=== PATIENT | male | born 1995 | race Caucasian/White ===

== ENCOUNTER 2021-09-21 07:02 | Emergency (ER) | payer MEDICAID, SELFPAY ==
--- NOTE | ~2021-09-21 | XR_ITS ---
EXAMINATION: XR chest 1V portable DATE: 09/21/2021 08:30 INDICATION: Mid chest pain TECHNIQUE: frontal view of the chest was obtained. COMPARISON: Chest CT dated 09/21/2021 FINDINGS: The lungs are clear with no focal airspace opacities, pulmonary edema, pleural effusion or pneumothor ax. The cardiomediastinal silhouette is normal. Visualized bones and soft tissues are unremarkable. IMPRESSION: 1. Normal chest radiograph. Reviewed, dictated and finalized at location B. IMPRESSION: 1. Normal chest radiograph.
--- NOTE | ~2021-09-21 | CT_ITS ---
EXAMINATION: CTA chest PE protocol DATE: 09/21/2021 08:18 INDICATION: Chest pain. TECHNIQUE: Computed tomography angiography (CTA) of the chest was performed with 100 mL Omnipaque-350 intravenous contrast timed to evaluate the pulmonary arteries. Coronal maximum intensity projection 3D-reconstructions were created by the technologist. Automated exposure control and iterative reconst ruction technique were employed. The dose-length product was 310.04 mGy-cm. COMPARISON: None. FINDINGS: There is no pneumonia or pleural effusion. The heart size is normal. No pericardial effusio n. There is no pulmonary embolus. There is an 8 mm hyperdense mass in the esophageal lumen, likely in gested material. The bones are unremarkable. IMPRESSION: 1. No pulmonary embolus. Reviewed, dictated and finalized at location A. IMPRESSION: 1. No pulmonary embolus.
--- NOTE | 2021-09-21 07:13 | ECG_ITS ---
Measurements Intervals [place] Rate: 70 P: 41 NE: 150 QRS: 31 QRSD: 93 T: 44 QT: 344 QTc: 374 Interpretive Statements SINUS RHYTHM INCOMPLETE RIGHT BUNDLE BRANCH BLOCK PEAKED T WAVES- CONSIDER HYPERKALEMIA OR ISCHEMIA ABNORMAL ECG Electronically Signed On 09-21-2021 7:59:43 CDT by Jakob High D.O.
--- NOTE | 2021-09-21 07:14 | ED.CHESTPAIN ---
HPI - Chest Pain General Chief Complaint: Chest Pain Stated Complaint: chest pain Time Seen by Provider: 09/21/21 07:09 Source: RN notes reviewed History of Present Illness HPI narrative: Patient presents emergency room from home for chest pain. Patient states pain began last night. The pain is across the bilateral chest and described as a pressure with occasional episode of sharp pain. States that the pain does not radiate. Nothing makes the pain better or worse he denies any fevers or chills shortness of breath abdominal pain nausea vomiting or other symptoms. Patient does state he has a history of having some sort of blood clot and had been on blood thinners for several months approximately 6 months ago but is no longer on the he is not sure where the blood clot was Related Data Allergies Allergy/AdvReac Type Severity Reaction Status Date / Time No Known Allergies Allergy Verified 09/21/21 07:22 Review of Systems Review of Systems: Gen.: Denies fevers or chills ENT: Denies congestion Respiratory: Denies shortness of breath or cough CV: See HPI GI: Denies abdominal pain nausea, emesis or diarrhea Musculoskeletal: Denies back pain or muscle pain Neuro: Denies numbness, tingling, weakness or focal weakness Skin: Denies rash Except as documented, all other systems reviewed and negative PMFSH Past Medical History Medical History (Updated 09/21/21 @ 11:29 by Nikko Cabrera DO) Venous thrombosis Social History Social History (Updated 09/21/21 @ 07:15 by Nikko Cabrera DO) Smoking status: Never smoker Exam Narrative: APPEARANCE: No acute distress, nontoxic, resting in bed EYES: EOMI HEENT: Normocephalic, atraumatic, OMM RESPIRATORY: No respiratory distress Clear to auscultation bilaterally with no rhonchi wheezing or rales. CARDIOVASCULAR: Regular rate and rhythm without murmurs rubs or gallops. Chest: Tender palpation over the anterior chest just to the right of sternum and regions of ribs 6 through 8 pain increased with fine motion ABDOMINAL: Soft, nontender, nondistended, no rebound or guarding MUSCULOSKELETAl: Moves all extremities. No clubbing, cyanosis or edema. NEURO: Awake and alert. Following commands, speech normal, no focal deficits SKIN:: Warm, dry. No rashes lesions or abrasions PSYCHIATRIC: Normal affect/mood, Course Course Emergency Course: Upon further conversation with the patient it appears that this pain has been ongoing for the past several months worse after he works out or does activity Discussed with patient results of workup and diagnosis. Discussed need for follow-up with primary care, proper use of medication, and reasons to return to the emergency department. Patient understands and agrees to current treatment plan Vital Signs Vital signs: Vital Signs Temperature 98.8 F 09/21/21 07:15 Pulse Rate 77 09/21/21 07:15 Respiratory Rate 16 09/21/21 07:15 Blood Pressure 138/80 09/21/21 07:15 Pulse Oximetry 100 09/21/21 07:15 Temperature 98.8 F 09/21/21 07:15 Pulse Rate 60 09/21/21 11:05 Respiratory Rate 16 09/21/21 11:05 Blood Pressure 114/64 09/21/21 11:05 Pulse Oximetry 100 09/21/21 11:05 MDM - Chest Pain MDM Narrative Medical decision making narrative: Patient's EKGs and labs are without significant high risk changes. Cardiac risk factors reviewed. Patient is felt likely low risk for ACS and reasonable for further risk stratification testing as an outpatient. No pneumonia aneurysm or PE seen on CTA chest patient is felt to be a reasonable candidate for continued evaluation as an outpatient Lab Data Result diagrams: 09/21/21 07:29 09/21/21 07:29 Labs: Lab Results 09/21/21 09/21/21 09/21/21 Range/Units 07:29 07:29 07:29 WBC 4.3 L (4.5-10.0) K/mm3 RBC 5.44 (4.6-6.20) M/mm3 Hgb 16.9 (14.0-18.0) g/dL Hct 50.6 (42.0-52.0) % MCV 93.0 (80-100) fl MCH 31.1 (26-34) pg MCHC 33.4
[2021-09-21 07:15] VITALS: BP 138/80; PULSE 77; RESP 16; TEMP 37.1; O2SAT 100
[2021-09-21 07:19] VITALS: PULSE 77
[2021-09-21 07:20] VITALS: O2SAT 100
[2021-09-21 07:33] LABS: Basophils Percent Auto 0.7 % (0.2-1.2); Eosinophils Absolute Auto 0.2 K/mm3 (0-0.3); Eosinophils Percent Auto 3.5 % (0-4.4); Hematocrit 50.6 % (42.0-52.0); Hemoglobin 16.9 g/dL (14.0-18.0); Immature Granulocyte Absolute 0.01 K/mm3 (0.00-0.031); Immature Granulocyte Percent A 0.2 % (0-0.5); Lymphocytes Absolute Auto 1.37 K/mm3 (0.9-3.2); Lymphocytes Percent Auto 31.6 % (18.3-44.2); Mean Corpuscular HGB Conc 33.4 g/dl (32-36); Mean Corpuscular Hemoglobin 31.1 pg (26-34); Mean Platelet Volume 11.6 fl (7.4-10.4); Monocytes Absolute Auto 0.4 K/mm3 (0.1-0.6); Neutrophils Absolute Auto 2.4 K/mm3 (1.3-6.7); Platelet Count Result 255 k/mm3 (150-375); Red Blood Count 5.44 M/mm3 (4.6-6.20); Red Cell Distribution Width 11.8 % (11.5-14.5); White Blood Count 4.3 K/mm3 (4.5-10.0)
[2021-09-21 07:44] LABS: Alanine Aminotransferase 25 U/L (6-50); Albumin Level 4.5 g/dL (3.5-5.1); Alkaline Phosphatase 70 U/L (38-126); Anion Gap 7 mmol/L (8-16); Aspartate Amino Transferase 37 U/L (17-59); Bilirubin,Total 1.3 mg/dL (0.2-1.3); Blood Urea Nitrogen 8 mg/dL (9-20); Calcium 9.3 mg/dL (8.4-10.2); Carbon Dioxide 32 mmol/L (22-30); Chloride 104 mmol/L (98-107); Estimated CRCL calculation 101 ml/min; Estimated Glomerular Filt Rate > 60; Glucose 104 mg/dL (65-110); INR 1.1; Lipase 99 U/L (23-300); Potassium 3.9 mmol/L (3.4-5.0); Prothrombin Time 13.7 Seconds (11.1-14.7); Sodium 143 mmol/L (137-145)
[2021-09-21 07:45] LABS: Partial Thromboplastin Time 29.7 SECONDS (22.3-36.8)
[2021-09-21 07:56] LABS: Troponin I < 0.012 ng/mL (0.000-0.034)
[2021-09-21 08:25] VITALS: BP 137/79; PULSE 78; RESP 20; O2SAT 99
--- NOTE | 2021-09-21 08:39 | PC.NURSE ---
Pt refused Toradol medication, said he does not need it, MD made aware.
[2021-09-21 09:29] VITALS: BP 118/96; PULSE 60; RESP 16; O2SAT 98
[2021-09-21 11:01] LABS: Troponin I < 0.012 ng/mL (0.000-0.034)
[2021-09-21 11:05] VITALS: BP 114/64; PULSE 60; RESP 16; O2SAT 100
== END 2021-09-21 11:40 | disposition home or self-care (01) ==
PROVIDERS: Emergency Provider Emergency Medicine
DX: R07.89 Other chest pain (principal); I45.10 Unspecified right bundle-branch block; R94.31 Abnormal electrocardiogram [ECG] [EKG]
CPT/HCPCS: 36415; 71045; 71275; 80053; 83690; 84484; 85025; 85610; 85730; 93005; 99284; Q9967

== ENCOUNTER 2021-09-23 12:38 | Emergency (ER) | payer MEDICAID, SELFPAY ==
--- NOTE | 2021-09-23 12:41 | ED.CHESTPAIN ---
HPI - Chest Pain General Chief Complaint: Chest Pain Stated Complaint: CHEST PAIN Time Seen by Provider: 09/23/21 12:41 Source: patient Mode of arrival: ambulatory Limitations: no limitations History of Present Illness HPI narrative: Mr. Patel is a 25-year-old male patient presenting to the clinic today with complaints of chest pain across his entire chest wall x1 week States he was in the ER yesterday and had a full work-up done and everything was negative. Even reports he had a CAT scan done and that was negative as well. He was diagnosed with costochondritis and was told to take ibuprofen. Pain does not radiate. Pain is sharp in nature. Rates pain a 7 out of 10 currently. States that the pain is worse this morning and the ibuprofen is not helping. Related Data Allergies Allergy/AdvReac Type Severity Reaction Status Date / Time No Known Allergies Allergy Verified 09/21/21 07:22 Review of Systems Review of Systems: Pertinent positives per HPI. Patient denies any fever, chills, rash, headache, visual changes, dizziness, cough, runny nose, sore throat, shortness of breath, palpitations, nausea, vomiting, diarrhea, constipation, abdominal pain, or any urinary issues. PMFSH Past Medical History Medical History Venous thrombosis Social History Social History Smoking status: Never smoker Comments At the time of my signature, I reviewed and agree with the nursing past medical, surgical, social, and family history. There is no relevant family history pertinent to the patient complaint. Exam Narrative: General: Well-developed, well nourished, in no apparent distress Head: Normocephalic, atraumatic. Chest: Normal appearance, even rise and fall with breathing, tenderness to palpation across entire anterior chest Cardio: Regular rate and rhythm, s1 and s2 normal, no murmur appreciated. Resp: Clear to auscultation bilaterally, no rhonchi, rales, wheezing or rubs. Extremities: No deformity, no edema, no cyanosis, capillary refill less than 2 seconds, peripheral pulses palpable and strong. Integumentary: [place], warm, and dry, intact without lesion, no rashes. Course Course Emergency Course: Portions of this record may have been created with voice recognition software. Level of Care: Express Care Visit Vital Signs Vital signs: Vital Signs Temperature 37.2 C 09/23/21 13:05 Pulse Rate 78 09/23/21 13:05 Respiratory Rate 16 09/23/21 13:05 Blood Pressure 129/64 09/23/21 13:05 Pulse Oximetry 99 09/23/21 13:05 Temperature 37.2 C 09/23/21 13:05 Pulse Rate 78 09/23/21 13:05 Respiratory Rate 16 09/23/21 13:05 Blood Pressure 129/64 09/23/21 13:05 Pulse Oximetry 99 09/23/21 13:05 Vital signs reviewed MDM - Chest Pain MDM Narrative Medical decision making narrative: The time of visit patient is resting comfortably on the exam table. EKG was completed and was sinus rhythm without ectopy. He had a full cardiac work-up done yesterday and all was negative at [facility]. I suspect that the patient still has costochondritis/chest wall pain and I will go ahead and give him a prescription for some prednisone. Other supportive measures and anticipatory guidance given to patient he voiced understanding of discharge instructions and agrees to treatment plan. ECG Data EKG #1: Attestation: I personally reviewed and interpreted this ECG as follows: ECG completion date: 09/23/21 Prior ECG tracings: available for review Interpretation: EKG normal sinus rhythm heart rate 66 bpm without ectopy DC intervals 143 ms, QRS durations 88 ms, QT/QTc is 336/349 ms P-R-T axes 53/61/55 Discharge Plan Discharge Clinical Impression: Costalchondritis Instructions: Costochondritis (ED), Chest Wall Pain (ED) Additional Instructions: EKG sinus r
--- NOTE | 2021-09-23 12:59 | ECG_ITS ---
Measurements Intervals [place] Rate: 66 P: 53 [place]: 143 QRS: 61 QRSD: 88 T: 55 QT: 336 QTc: 353 Interpretive Statements SINUS RHYTHM INCOMPLETE RIGHT BUNDLE BRANCH BLOCK BASELINE ARTIFACT- II, III, AVF BORDERLINE ECG Electronically Signed On 09-23-2021 19:00:10 CDT by Jakob High D.O.
[2021-09-23 13:05] VITALS: BP 129/64; PULSE 78; RESP 16; TEMP 37.2; O2SAT 99
== END 2021-09-23 13:16 | disposition home or self-care (01) ==
PROVIDERS: Emergency Provider Nurse Practitioner Family
DX: M94.0 Chondrocostal junction syndrome [Tietze] (principal)
CPT/HCPCS: 93005; 99213; G0463